=== PATIENT | male | born 2005 | race Caucasian/White ===

== ENCOUNTER 2025-08-07 04:32 | Emergency (ER) | payer OTHER ==
[~2025-08-07] VITALS: Ht 177.8 cm; Wt 93.0 kg
[2025-08-07 05:45] LABS: PLATELET COUNT, AUTOMATED 258 10^3/uL (150-450)
[2025-08-07 06:06] LABS: ETHYL ALCOHOL (ETHANOL) 0.180 % (0.000-0.010)
[2025-08-07 06:08] LABS: ALT/SGPT 84 U/L (7.0-40); AST/SGOT 31 U/L (<34); CALCIUM LEVEL 9.2 MG/DL (8.5-10.1); CARBON DIOXIDE LEVEL 26 MMOL/L (20-31); CHLORIDE LEVEL 107 MMOL/L (98-107); CREATININE FOR GFR 0.89 MG/DL (0.70-1.30); GLOMERULAR FILTRATION RATE > 90.0 (>60); POTASSIUM SERUM 4.3 MMOL/L (3.5-5.1); SALICYLATE LEVEL < 3.0 MG/DL (<30); SODIUM LEVEL 146 MMOL/L (136-145)
[2025-08-07 06:29] LABS: AMPHETAMINES LEVEL URINE NEGATIVE (NEGATIVE); BARBITURATES URINE NEGATIVE (NEGATIVE); BENZODIAZEPINES URINE NEGATIVE (NEGATIVE); CANNABINOIDS URINE NEGATIVE (NEGATIVE); COCAINE METABOLITE URINE NEGATIVE (NEGATIVE); METHADONE URINE NEGATIVE (NEGATIVE); OPIATES URINE NEGATIVE (NEGATIVE); PHENCYCLIDINE URINE NEGATIVE (NEGATIVE)
[2025-08-07] MEDS ORDERED: HOME MED LIST COMPLETE! XX SCH (11:05)
[2025-08-07 14:06] VITALS: BP 136/73; TEMP 97.9; O2SAT 98
== END 2025-08-07 14:25 | disposition home or self-care (01) ==
LOC: M ED 04:32
DX: F10.129 Alcohol abuse with intoxication, unspecified (principal); F32.A Depression, unspecified; R45.88 Nonsuicidal self-harm